=== PATIENT | male | born 1965 | race Caucasian/White ===

== ENCOUNTER → 2020-11-18 | Outpatient (CLI) | payer OTHER ==
--- NOTE | 2020-11-18 14:47 | Diagnostic Imaging Report ---
EXAM: LUMBOSACRAL SPINE 4 VIEWS OR >. INDICATION: Low back pain. Numbness. COMPARISON: None. FINDINGS: There are five lumbar-type vertebral bodies. Moderate degenerative endplate changes at L1-L4. Grade 1 retrolisthesis of L2 on L3 and L3 on L4. Mild facet arthropathy at L5-S1. Vertebral body heights appear preserved. Probable pars defect at L5-S1 is seen only on the lateral views, most likely on the left. The visualized pelvis is intact. IMPRESSION: 1. Moderate spondylotic changes are greatest at L1-L4. 2. There is a probable pars defect on the left at L5, seen only on the lateral views. This is not well demonstrated on the obliques due to the positioning. This could be better evaluated with CT. Dictated by: Dictated on workstation # [id number]
== END ==
LOC: RAD 13:30
PROVIDERS: ATTEND Family Medicine
DX: M47.816 Spondylosis without myelopathy or radiculopathy, lumbar region (principal)
CPT/HCPCS: 72110